=== PATIENT | male | born 1970 | race Caucasian/White ===

== ENCOUNTER 2017-03-16 21:26 | Inpatient (IN) | payer MEDICAID ==
[~2017-03-16] VITALS: Ht 165.1 cm; Wt 62.5 kg
[~2017-03-16 21:26] MED LIST: CHLO25CA9 PO; CYCL-319 PO; NAPR-260 PO; OMEP20CA9 PO
--- NOTE | 2017-03-16 22:25 | RADRPT ---
PROCEDURE: CT cervical spine without contrast. CLINICAL INDICATION: Injury. Post traumatic neck pain TECHNIQUE: CT of the cervical spine without contrast was performed. Axial images were obtained th rough the cervical spine and reformatted at 1.25 mm slice thickness. Coronal and sagittal images wer e reformatted. Exam CTDIvol = 22.23 mGy and DLP = 502.78 mGy-cm. COMPARISON: None available. FINDINGS: Vertebral bodies: Stature at every level is preserved. The lordosis is straightened. Trace retrolis thesis of C4 relative to C5 and C5 L2-C6 is noted on the sagittal reformatted images There is normal mineralization and trabeculation. The C1 ring is intact and the predental space is normal. Central canal and cervical spinal cord: No abnormal density within the spinal cord is evident and no intraspinal masses are delineated. C2-3: The disk is within normal limits. The facet joints are normal. The uncovertebral joints and f oramina are unremarkable. No posterior element fracture or paraspinal soft tissue abnormality is dem onstrated. C3-4: The disk is within normal limits. The facet joints are normal. The uncovertebral joints and foramina are unremarkable. No posterior element fracture or paraspinal soft tissue abnormality is de monstrated. C4-5: Trace loss of disk stature and a broad-based 4 mm disk bulge without focal protrusion or sign ificant central stenosis. The facet joints are normal. Uncovertebral hypertrophy with vacuum phenom enon is present contribute to moderate bilateral foraminal stenosis. No posterior element fracture or paraspinal soft tissue abnormality is demonstrated. C5-6: Mild degenerative disk and with a broad-based posterior disk bulge asymmetric to the right wi thout significant central stenosis. The facet joints are normal. Vacuum phenomenon of the degenerat ed uncovertebral joints is present with mild bilateral foraminal stenosis. No posterior element fra cture or paraspinal soft tissue abnormality is demonstrated. C6-7: The disk is within normal limits. The facet joints are normal. The uncovertebral joints and foramina are unremarkable. C7-T1: The disk is within normal limits. The facet joints are normal. The uncovertebral joints and foramina are unremarkable. Non spine related findings: No abnormalities of significance are seen. RPTAT:HJJR IMPRESSION: 1. No evidence of cervical spine fracture. 2. Straightening of the lordosis may be from positioning but cannot exclude muscle spasm. 3. Minimal degenerative disk disease at C4-5 and C5-6 without significant central stenosis. 4. Uncovertebral hypertrophy with vacuum phenomenon at C4-5 and C5-6 contributing to foraminal sten osis greater at C4-5. Physician Randy Date Time Electronically viewed and signed by Colby Patel Physician on 03/16/2017 22:25 /
--- NOTE | 2017-03-16 22:27 | RADRPT ---
PROCEDURE: CT facial bones CLINICAL INDICATION: Trauma TECHNIQUE: A CT of the facial bones was performed utilizing high-resolution axial images. Sagitta l, coronal, and multiplanar reformatted images were made. Additionally, 3-D reformatted images were made. The CTDIvol is 29.53 mGy and the DLP is 561.93 mGy-cm. One or more the following dose reduction techniques were utilized: Automated exposure control, adjus tment of the mA/ or kV according to patient's size, or use of iterative reconstruction technique. COMPARISON: None. FINDINGS: There is a comminuted fracture of the anterolateral wall of the right maxillary sinus including the right inferior rim with blood in the sinus. There is right orbital preseptal soft tissue swelling an d soft tissue swelling/hematoma overlying the right zygoma, maxilla and mandible with foci of soft t issue air likely arising from the right maxillary sinus. Mucosal thickening in bilateral frontal, et hmoid and left maxillary sinuses. Nasal septum is convex to the right. IMPRESSION: Comminuted fracture of the anterolateral wall of right maxillary sinus including the right inferior orbital rim. Right orbital preseptal soft tissue swelling and soft tissue swelling/hematoma overlyi ng right zygoma, maxilla and mandible. Please see above. RPTAT: HJES .Stephane Johnson MD, MD Date Time Electronically viewed and signed by .Stephane Johnson MD, on 03/16/2017 22:27 .S/
--- NOTE | 2017-03-16 22:32 | RADRPT ---
PROCEDURE: CT Brain without contrast. CLINICAL INDICATION: Trauma, headache TECHNIQUE: A CT of the brain was performed utilizing axial sections from the skull base through th e vertex without contrast. Multiplanar re-formations were generated. Images were reviewed on a high- resolution PACS workstation. CTDIvol: 44.84 mGy. DLP: 720.23 mGy-cm. One or more of the following dose reduction techniques were used: - Automated exposure control. - Adjustment of the mA and/or kV according to patient size. - Use of iterative reconstruction technique. COMPARISON: Facial CT performed concurrently. FINDINGS: There is mild generalized volume loss. No hydrocephalus is seen. A 3 mm thick extra-axial hyperdens ity is noted along the right temporal lobe, also visualized on the concurrent facial CT, consistent with a subdural hematoma. There is no mass effect. No CT evidence of acute infarction is identified . There is patchy low attenuation in the supratentorial white matter, a nonspecific finding which m ost likely represents the sequela of mild chronic microvascular ischemic disease. There is opacification of the visualized right maxillary sinus, consistent with blood. The visualize d mastoid air cells are clear. The ossesous structures are unremarkable. Soft tissue swelling is not ed over the right side of the face. IMPRESSION: 1. 3 mm thick subdural hematoma along the right temporal lobe. There is no associated mass effect. 2. Mild generalized volume loss. 3. Mild chronic microvascular ischemic changes. 4. Blood filled right maxillary sinus. Critical Results were called to Dr. Woodward at 10:25 p.m. on 03/16/2017. RPTAT: HTAR .Rizwan Tripp MD, Date Time Electronically viewed and signed by .Rizwan Tripp MD, MD on 03/16/2017 22:31 .R/
[2017-03-16 23:12] LABS: ADD SCAN DIFF NO
[2017-03-16 23:14] LABS: ABNORMAL IP MESSAGE 1; HEMATOCRIT 41.8 % (42.0-52.0); HEMOGLOBIN 14.3 g/dl (14.0-18.0); MEAN CORPUSCULAR HEMOGLOBIN 30.5 pg (29.0-33.0); MEAN CORPUSCULAR HGB CONC 34.2 g/dl (32.0-37.0); MEAN CORPUSCULAR VOLUME 89.1 fl (82.0-101.0); MEAN PLATELET VOLUME 9.1 fl (7.4-10.4); PLATELET COUNT 56 10^3/UL (140-415); RED BLOOD COUNT 4.69 10^6/ul (4.70-6.10); RED CELL DISTRIBUTION WIDTH 15.5 % (11.5-14.5); WHITE BLOOD COUNT 6.2 10^3/ul (4.8-10.8)
[2017-03-16 23:26] LABS: INR 0.94; PROTIME 12.6 Sec (12.2-14.2)
[2017-03-16 23:27] LABS: PARTIAL THROMBOPLASTIN TIME 26.9 Sec (25.0-35.0)
[2017-03-16 23:28] LABS: ANION GAP 20 (8-16); BLOOD UREA NITROGEN 5 mg/dl (7-20); CALCIUM 8.3 mg/dl (8.4-10.2); CARBON DIOXIDE 27 mmol/L (21-31); CHLORIDE 104 mmol/L (97-110); CREATININE 0.48 mg/dl (0.61-1.24); GLUCOSE 111 mg/dl (70-220); POTASSIUM 3.8 mmol/L (3.5-5.1); SODIUM 147 mmol/L (135-144)
[2017-03-16 23:40] LABS: TROPONIN-I < 0.012 ng/ml (0.00-0.12)
[2017-03-16 23:49] LABS: BASOPHIL # 0.1 10^3/ul (0.0-0.1); EOSINOPHILS # 0.6 10^3/ul (0.0-0.5); LYMPHOCYTES # 1.3 10^3/ul (0.8-2.9); MONOCYTE # 0.6 10^3/ul (0.3-0.9); NEUTROPHIL # 3.6 10^3/ul (1.6-7.5); PLATELET ESTIMATE PLT APPEAR DECREASED; PLATELETS CLUMPS FEW
[2017-03-17] VITALS (20 sets, daily range): BP systolic 105–159; BP diastolic 58–110; PULSE 73–103; RESP 11–25; TEMP 97.8; Ht 165.1 cm; Wt 62.5 kg
--- NOTE | 2017-03-17 00:14 | RADRPT ---
PROCEDURE: XR Chest. CLINICAL INDICATION: Chest pain TECHNIQUE: Single AP portable chest COMPARISON: None. FINDINGS: The cardiomediastinal silhouette is within normal limits of size .. Atherosclerotic calcification of the aorta. The lungs are clear without pleural effusion or focal consolidation. No pneumothorax. The osseous structures and soft tissues are unremarkable. IMPRESSION: 1. No evidence for active cardiopulmonary disease. RPTAT:AAJJ Shan Her Physician Date Time Electronically viewed and signed by Shan Her Physician on 03/17/2017 00:14 EDNA/
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
[2017-03-17] MEDS ORDERED: NACL 0.9% 3 ML SYG IV SCH (03:00)
[2017-03-17] MEDS ORDERED: METOCLOPRAMIDE 10 MG INJ IV PRN (03:00)
[2017-03-17] MEDS: SOD CHLORIDE 0.9% 1,000 ML IV SCH ×3 (03:13→18:14)
--- NOTE | 2017-03-17 06:24 | RADRPT ---
PROCEDURE: CT brain without contrast. CLINICAL INDICATION: Intracranial hemorrhage, follow-up. TECHNIQUE: CT scan of the brain was performed on a multi-detector high-resolution CT scanner. Co ntiguous axial images were obtained from the skull base to the vertex without intravenous contrast. Coronal and sagittal reformatted images were also obtained. Images were reviewed on the PACS works tation. One or more of the following dose reduction techniques were used: - Automated exposure control. - Adjustment of the mA and/or kV according to patient size. - Use of iterative reconstruction technique. Exam CTD/vol = 44.63 mGy. Total exam DLP = 810.25 mGy-cm. COMPARISON: 03/16/2017. FINDINGS: Again demonstrated is mild subdural hemorrhage along the right temporal lobe measuring up to 3 mm in thickness which is unchanged from the prior study. There is mild subarachnoid hemorrhage along the right quadrigeminal plate cistern and tentorium. The ventricles and cortical sulci are prominent c onsistent with mild cerebral volume loss. There are no areas of abnormal attenuation within the brai n parenchyma. There is no mass effect or midline shift. There is right facial soft tissue swelling and hematoma. Again demonstrated are fractures of the an terior wall of the right maxillary sinus and inferior orbital rim with hemorrhage within the right m axillary sinus. The calvarium is intact. Bilateral mastoid air cells are clear. IMPRESSION: Small subdural hemorrhage along the right temporal lobe, unchanged. There is no midline shift. Mild subarachnoid hemorrhage along the right quadrigeminal plate cistern and tentorium, new compared with the prior study. Fractures of the anterior wall of the right maxillary sinus and inferior orbital rim with hemorrhage within the right maxillary sinus. Right facial soft tissue swelling and hematoma. A call report was made to Dr. Berg at 06:24 a.m. .Jose Rodriguez MD, Date Time Electronically viewed and signed by .Jose Rodriguez MD, MD on 03/17/2017 06:24 .T/
[2017-03-17] MEDS: FAMOTIDINE 20 MG TAB PO SCH ×2 (09:41→21:27)
[2017-03-17] MEDS: morphine 2 MG INJ IV PRN ×2 (09:42→13:58)
[2017-03-17] MEDS ORDERED: IOHEXOL 100 ML ONE ×2 (11:39→11:58)
[2017-03-17] MEDS ORDERED: SOD CHLORIDE 0.9% 100 ML ONE ×2 (11:39→11:58)
--- NOTE | 2017-03-17 12:22 | RADRPT ---
PROCEDURE: CT angiogram of the brain with contrast. CLINICAL INDICATION: rule out ruptured aneurysm TECHNIQUE: Thin section axial, coronal and sagittal images were performed through the brain follow ing injection of 100 cc of Isovue 370. One or more of the following dose reduction techniques were used: - Automated exposure control. - Adjustment of the mA and/or kV according to patient size. Use of iterative reconstruction technique. Radiation dose: CTDI: 44.6 and DLP: 810.3 COMPARISON: CT scan of the brain 03/17/2017. FINDINGS: The fourth ventricle, third and lateral ventricles are normal in size configuration. The brain pare nchyma is normal. No intracranial mass or hemorrhage is identified. The visible portions of the gl obes and extraocular muscles are normal. There is a scalp hematoma adjacent to the right frontal kulwant ne and around the right orbit. There is hemorrhage in the right maxillary sinus with a normally less fracture to the ventral wall of the right maxillary sinus. There is a hairline fracture of the infe rior right orbital rim. The right left vertebral arteries are not tortuous but normal. The basilar artery is normal with no evidence of a basilar tip aneurysm. The cavernous and super cavernous portions of the internal carotid arteries are normal. The posterior inferior cerebellar arteries, anterior inferior cerebellar arteries and superior cereb ellar arteries are normal. The posterior cerebral arteries are normal. The left posterior communic ating artery is normal. The right posterior communicating artery is atretic which is a normal varia nt. The the anterior middle cerebral arteries are normal. No anterior communicating artery aneurysm is identified. There is a prominent vein of the levator adjacent to the right temporal lobe. No subdural hematoma is identified. An arachnoid granulation is noted in the left transverse sinus. The neural sinuses are otherwise un remarkable. IMPRESSION: 1. The area increased attenuation located in the periphery of the right middle cranial fossa identif ied on the CT scan of 03/16/2017 at 10:10 p.m. corresponds to a prominent vein of Cherelle. No subdura l hematoma is identified. No subarachnoid hemorrhage is identified at this time. 2. Negative CT angiogram of the brain. 3. Right periorbital soft tissue contusion with fractures involving the anterior wall of the right maxillary sinus. Hemorrhage inside the right maxillary sinus. 4. Hairline fracture of the right inferior orbital rim. RPTAT:AAJJ Hermilo Lamb Physician Date Time Electronically viewed and signed by Hermilo Lamb, Physician on 03/17/2017 12:22 /
[2017-03-17] MEDS: LORAZEPAM 2 MG INJ IV PRN ×2 (15:44→18:45)
[2017-03-17] MEDS: MULTIVITAMINS 10 ML, THIAMINE 100 MG, FOLIC ACID 1 MG in SOD CHLORIDE 0.9% 1,000 ML IVPB SCH ×2 (16:00→16:45)
[2017-03-18] VITALS (11 sets, daily range): BP systolic 121–136; BP diastolic 76–90; PULSE 71–105; RESP 18–20
[2017-03-18] MEDS: SOD CHLORIDE 0.9% 1,000 ML IV SCH ×3 (02:47→18:31)
[2017-03-18] MEDS: FAMOTIDINE 20 MG TAB PO SCH ×2 (08:45→21:40)
[2017-03-18] MEDS ORDERED: MULTIVITAMINS 10 ML, THIAMINE 100 MG, FOLIC ACID 1 MG in SOD CHLORIDE 0.9% 1,000 ML IVPB SCH (09:00)
[2017-03-18 09:31] LABS: ADD SCAN DIFF NO
[2017-03-18 09:33] LABS: ABNORMAL IP MESSAGE 1; BASOPHILS % 0.5 % (0.0-2.0); EOSINOPHILS # 0.4 10^3/ul (0.0-0.5); EOSINOPHILS % 5.1 % (0.0-7.0); HEMATOCRIT 42.5 % (42.0-52.0); HEMOGLOBIN 14.1 g/dl (14.0-18.0); LYMPHOCYTES # 1.1 10^3/ul (0.8-2.9); LYMPHOCYTES % 13.7 % (15.0-51.0); MEAN CORPUSCULAR HEMOGLOBIN 29.9 pg (29.0-33.0); MEAN CORPUSCULAR HGB CONC 33.2 g/dl (32.0-37.0); MEAN CORPUSCULAR VOLUME 90.2 fl (82.0-101.0); MEAN PLATELET VOLUME 9.9 fl (7.4-10.4); MONOCYTE # 0.8 10^3/ul (0.3-0.9); MONOCYTES % 9.3 % (0.0-11.0); NEUTROPHIL # 5.8 10^3/ul (1.6-7.5); RED BLOOD COUNT 4.71 10^6/ul (4.70-6.10); RED CELL DISTRIBUTION WIDTH 14.7 % (11.5-14.5); WHITE BLOOD COUNT 8.1 10^3/ul (4.8-10.8)
[2017-03-18 09:36] LABS: PLATELET COUNT 62 10^3/UL (140-415)
[2017-03-18 09:46] LABS: CALCIUM 8.9 mg/dl (8.4-10.2); CREATININE 0.5 mg/dl (0.61-1.24)
[2017-03-18] MEDS: morphine 2 MG INJ IV PRN (10:40)
[2017-03-18] MEDS ORDERED: ACETAMINOPHEN 500 MG TAB PO PRN (11:30)
[2017-03-18] MEDS: LORAZEPAM 2 MG INJ IV PRN (17:25)
[2017-03-18] MEDS: MULTIVITAMINS 10 ML, THIAMINE 100 MG, FOLIC ACID 1 MG in SOD CHLORIDE 0.9% 1,000 ML IVPB SCH (17:32)
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
[2017-03-18] MEDS ORDERED: CHLORDIAZEPOXIDE 25 MG CAP PO SCH (21:00)
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
[2017-03-19 00:24] VITALS: BP 153/94; RESP 20
[2017-03-19 00:57] VITALS: BP 124/95; PULSE 106
[2017-03-19] MEDS ORDERED: SOD CHLORIDE 0.9% 500 ML IV ONE (01:00)
[2017-03-19 01:20] VITALS: PULSE 104
[2017-03-19] MEDS: SOD CHLORIDE 0.9% 1,000 ML IV SCH (02:31)
[2017-03-19 04:00] VITALS: BP 138/89; RESP 18
[2017-03-19 04:29] VITALS: PULSE 99
[2017-03-19 08:14] LABS: CHOL/HDL RATIO 1.9 RATIO; MAGNESIUM 1.5 mg/dl (1.7-2.5); PHOSPHORUS 3.5 mg/dl (2.5-4.9)
[2017-03-19 08:19] LABS: ALBUMIN 4.5 g/dl (3.3-4.9); ALBUMIN/GLOBULIN RATIO 1.28; BILIRUBIN,INDIRECT 0.8 mg/dl (0-1.1); BILIRUBIN,TOTAL 0.8 mg/dl (0.2-1.3); CALCIUM 9.7 mg/dl (8.4-10.2); CREATININE 0.55 mg/dl (0.61-1.24); POTASSIUM 3.2 mmol/L (3.5-5.1)
[2017-03-19 08:36] LABS: THYROID STIMULATING HORMONE 2.93 MIU/L (0.465-4.680)
[2017-03-19 09:16] LABS: ADD SCAN DIFF NO
[2017-03-19 09:35] LABS: CREATININE 0.52 mg/dl (0.61-1.24)
[2017-03-19 09:36] LABS: CALCIUM 9.7 mg/dl (8.4-10.2)
[2017-03-19 10:34] LABS: ABNORMAL IP MESSAGE 1; BASOPHILS % 0.5 % (0.0-2.0); EOSINOPHILS # 0.4 10^3/ul (0.0-0.5); HEMATOCRIT 40.5 % (42.0-52.0); LYMPHOCYTES % 12.9 % (15.0-51.0); MEAN CORPUSCULAR HEMOGLOBIN 30.6 pg (29.0-33.0); MEAN CORPUSCULAR HGB CONC 34.6 g/dl (32.0-37.0); MEAN CORPUSCULAR VOLUME 88.6 fl (82.0-101.0); MEAN PLATELET VOLUME 10.4 fl (7.4-10.4); MONOCYTE # 0.9 10^3/ul (0.3-0.9); MONOCYTES % 11.8 % (0.0-11.0); NEUTROPHIL # 5.4 10^3/ul (1.6-7.5); NEUTROPHILS % 69.3 % (39.0-77.0); PLATELET COUNT 82 10^3/UL (140-415); RED BLOOD COUNT 4.57 10^6/ul (4.70-6.10); RED CELL DISTRIBUTION WIDTH 14.7 % (11.5-14.5); WHITE BLOOD COUNT 7.7 10^3/ul (4.8-10.8)
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
== END 2017-03-19 07:12 | disposition left against medical advice (07) | DRG 87 ==
LOC: E/R 21:26 → ICU 03-17 02:41 → TEL 03-17 19:02
PROVIDERS: ADMIT Family Medicine; ATTEND Family Medicine
DX: S06.5X0A Traumatic subdural hemorrhage without loss of consciousness, initial encounter (principal); D69.6 Thrombocytopenia, unspecified; S02.40CA Maxillary fracture, right side, initial encounter for closed fracture; S02.81XA Fracture of other specified skull and facial bones, right side, initial encounter for closed fracture; Y04.0XXA Assault by unarmed brawl or fight, initial encounter; F10.229 Alcohol dependence with intoxication, unspecified; Y93.89 Activity, other specified; Y92.89 Other specified places as the place of occurrence of the external cause; Z59.0 Homelessness
CPT/HCPCS: 36415; 70450; 70486; 70496; 71010; 72125; 80048; 80053; 80061; 82652; 83036; 83735; 84100; 84439; 84443; 84484; 85025; 85610; 85730; 87081; 93005; J2060; J2270; J3411; J7030; J7040; Q9967

== ENCOUNTER 2017-03-23 07:56 | Emergency (ER) | payer MEDICAID ==
[~2017-03-23] VITALS: Ht 165.1 cm; Wt 63.0 kg
[2017-03-23 08:00] VITALS: Ht 165.1 cm; Wt 63.0 kg
[2017-03-23] MEDS ORDERED: HYDR-902 PO (08:27)
[2017-03-23] MEDS ORDERED: AMOX1TAB10 PO (08:27)
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
[2017-07-08] MEDS ORDERED: OMEP20CA16 PO (01:02)
== END 2017-03-23 08:37 | disposition home or self-care (01) ==
LOC: FTE 07:56
DX: S02.40CD Maxillary fracture, right side, subsequent encounter for fracture with routine healing (principal); S00.83XD Contusion of other part of head, subsequent encounter; Y09 Assault by unspecified means
CPT/HCPCS: 99284

== ENCOUNTER 2017-07-01 17:32 | Inpatient (IN) | payer MEDICAID ==
[~2017-07-01] VITALS: Ht 165.1 cm; Wt 61.3 kg
[~2017-07-01 17:32] MED LIST changes: +AMOX1TAB10 PO; -CHLO25CA9 PO; -CYCL-319 PO; +HYDR-902 PO; -NAPR-260 PO; -OMEP20CA9 PO
[2017-07-01] MEDS ORDERED: PANTOPRAZOLE IV 80 MG in SOD CHLORIDE 0.9% 100 ML IVPB STA (18:08)
[2017-07-01] MEDS ORDERED: SOD CHLORIDE 0.9% 1,000 ML IV STA (18:08)
[2017-07-01] MEDS ORDERED: OCTREOTIDE 50 MCG in SOD CHLORIDE 0.9% 25 ML IVPB STA (18:08)
[2017-07-01] MEDS ORDERED: OCTREOTIDE 500 MCG in SOD CHLORIDE 0.9% 49 ML IV STA (18:08)
[2017-07-01] MEDS ORDERED: PANTOPRAZOLE IV 80 MG in SOD CHLORIDE 0.9% 100 ML IV STA (18:08)
[2017-07-01 18:48] LABS: ABNORMAL IP MESSAGE 1; HEMATOCRIT 36.8 % (42.0-52.0); HEMOGLOBIN 12.9 g/dl (14.0-18.0); MEAN CORPUSCULAR HEMOGLOBIN 31.5 pg (29.0-33.0); MEAN CORPUSCULAR HGB CONC 35.1 g/dl (32.0-37.0); MEAN CORPUSCULAR VOLUME 89.8 fl (82.0-101.0); MEAN PLATELET VOLUME 9.3 fl (7.4-10.4); PLATELET COUNT 64 10^3/UL (140-415); POSITIVE DIFF @See below; RED CELL DISTRIBUTION WIDTH 14.2 % (11.5-14.5); WHITE BLOOD COUNT 4.6 10^3/ul (4.8-10.8)
[2017-07-01 19:05] LABS: ALBUMIN 4.4 g/dl (3.3-4.9); ALBUMIN/GLOBULIN RATIO 1.29; BILIRUBIN,INDIRECT 0.1 mg/dl (0-1.1); BILIRUBIN,TOTAL 0.1 mg/dl (0.2-1.3); CALCIUM 8.7 mg/dl (8.4-10.2); CREATININE 0.56 mg/dl (0.61-1.24); POTASSIUM 3.4 mmol/L (3.5-5.1); TOTAL PROTEIN 7.8 g/dl (6.1-8.1)
--- NOTE | 2017-07-01 19:23 | RADRPT ---
PROCEDURE: XR Chest. CLINICAL INDICATION: Possible Upper GI Bleed TECHNIQUE: Single frontal view of the chest was obtained. COMPARISON: 03/16/2017 FINDINGS: The cardiomediastinal silhouette is normal size. Pulmonary vasculature is within normal limits. Th e lungs are clear. No signs of pleural fluid or pneumothorax are seen. The osseous structures and soft tissues are unre markable. IMPRESSION: No evidence for active cardiopulmonary disease. RPTAT: HBST .Stanford Ramirez MD, MD Date Time Electronically viewed and signed by .Stanford Ramirez MD, MD on 07/01/2017 19:22 .T/
[2017-07-01 19:27] LABS: INR 0.89; PT RATIO 0.9
[2017-07-01 19:28] LABS: PARTIAL THROMBOPLASTIN TIME 26.4 Sec (25.0-35.0)
[2017-07-01 19:48] LABS: BASOPHILS % (M) 3 % (0-2); EOSINOPHILS % (M) 20 % (0-7); GIANT THROMBO% (M) 3 % (0-0); MONOCYTES % (M) 8 % (0-11); PLATELET ESTIMATE DECREASED
--- NOTE | 2017-07-01 22:58 | ERA ---
ER Documentation Chief Complaint Date/Time DATE: 07/01/17 TIME: 22:52 Chief Complaint ETOH VOMITING BLOOD X multi HPI This is a 46-year-old male who is alcoholic and has been drinking heavily over the past week. He said last night he vomited about 5-7 times bright red blood. He said the entire vomited vomitus was blood. He says this morning he woke up and threw up 3 or 4 more times that was pure blood and did the same again later this afternoon. Is not having any abdominal pain back pain dizziness syncope. He has not had any melena diarrhea thus far. He denies any prior history of peptic ulcer disease. ROS All systems reviewed and are negative except as per history of present illness. Medications Home Meds Discontinued Scripts Hydrocodone/Acetaminophen ([place] 10-325 Tablet) 1 Each Tablet, 1 TAB PO Q6H Y for PAIN, #20 TAB Prov:ANETA GORDILLO MD 03/23/17 Amoxicillin/Potassium Clav (Amox-Clav 875-125 mg Tablet) 875-125 mg Tab, 1 TAB PO BID for 7 Days, #14 TAB Prov:ANETA GORDILLO MD 03/23/17 Allergies Allergies: Coded Allergies: No Known Allergy (Verified , 07/01/17) PMhx/Soc History of Surgery: No Anesthesia Reaction: No Hx Neurological Disorder: No Hx Respiratory Disorders: No Hx Cardiac Disorders: No Hx Psychiatric Problems: No Hx Miscellaneous Medical Probl: Yes (GASTRITIS, ETOH ABUSE, SUB DURAL HEMATOMA) Hx Alcohol Use: Yes (DAILY: 1/2 P[place]) Hx Substance Use: No Hx Tobacco Use: No Smoking Status: Never smoker FmHx Family History: No coronary disease Physical Exam Vitals Vital Signs Date Time Temp Pulse Resp B/P Pulse Ox O2 Delivery O2 Flow Rate FiO2 07/01/17 21:00 98.0 78 20 135/84 96 Room Air 07/01/17 17:40 97.8 121 20 120/82 99 Physical Exam Const: Well-developed, well-nourished Head: Atraumatic, normocephalic Eyes: Normal Conjunctiva, PERRLA, EOMI, normal sclera, no nystagmus ENT: Normal External Ears, mouth has a dried blood around the lips with a bloody coated tongue, moist mucus membranes. Neck: Full range of motion. No meningismus, no lymphadenopathy. Resp: Clear to auscultation bilaterally, no wheezing, rhonchi, rales Cardio: Regular rate and rhythm, no murmurs, S1 S2 present Abd: Soft, non tender x 4, non distended. Normal bowel sounds, no guarding or rebound, no pulsitile abdominal masses or bruits Skin: No petechiae or rashes, no ecchymosis , no maculopapular rash Back: No midline or flank tenderness Ext: No cyanosis, or edema, FROM x 4, normal inspection, neurovascularly intact x 4 Neur: Awake and alert, STR 5/5 x 4, sensation intact x 4, no focal findings, cerebellum intact Psych: Normal Mood and Affect Result Diagram: 07/01/17182907/01/171829 Results 24 hrs Laboratory Tests Test 07/01/17 18:30 White Blood Count 4.610^3/ul Red Blood Count 4.1010^6/ul Hemoglobin 12.9g/dl Hematocrit 36.8% Mean Corpuscular Volume 89.8fl Mean Corpuscular Hemoglobin 31.5pg Mean Corpuscular Hemoglobin Concent 35.1g/dl Red Cell Distribution Width 14.2% Platelet Count 6410^3/UL Mean Platelet Volume 9.3fl Neutrophils % % Segmented Neutrophils % (Manual) 43% Lymphocytes % % Lymphocytes % (Manual) 26% Monocytes % % Monocytes % (Manual) 8% Eosinophils % % Eosinophils % (Manual) 20% Basophils % % Basophils % (Manual) 3% Nucleated Red Blood Cells % 0.0/100WBC Neutrophils # 10^3/ul Absolute Lymphocytes (Manual) 1.110^3/ul Lymphocytes # 10^3/ul Monocytes # 10^3/ul Absolute Monocytes (Manual) 0.310^3/ul Eosinophils # 10^3/ul Basophils # 10^3/ul Basophils # (Manual) 0.110^3/ul Nucleated Red Blood Cells # 10^3/ul Smudge Cells % 5% Thrombocytosis 3% Platelet Estimate DECREASED Prothrombin Time 12.0Sec Prothrombin Time Ratio 0.9 INR International Normalized Ratio 0.89 Activated Partial Thromboplast Time 26.4Sec Sodium Level 149mmol/L Potassium Level 3.4mmol/L Chloride Level 101mmol/L Carbon Dioxide Level 26mmol/L Anion Gap 25 Blood Urea Nitrogen 9mg/dl Creatinine 0.56mg/dl Glucose Level 133mg/dl Calcium Level 8.7mg/dl Total Bilirubin 0.1mg/dl Direct Bilirubin 0.00mg/dl Indirect Bilirubin 0.1mg/dl Aspartate Amino Transf (AST/SGOT) 111IU/L Alanine Aminotransferase (ALT/SGPT) 57IU/L Alkaline Phosphatase 68IU/L Total Protein 7.8g/dl Albumin 4.4g/dl Globulin 3.40g/dl Albumin/Globulin Ratio 1.29 Lipase 419U/L Ethyl Alcohol Level 265.0mg/dl Current Medications Medications (Trade) Dose Ordered Sig/Vicente Route PRN Reason Start Time Stop Time Status Last Admin Dose Admin Sodium Chloride 1,000 ml @ 1,000 mls/hr Q1H STAT IV 07/01/17 18:08 07/01/17 19:07 DC 07/01/17 18:13 Pantoprazole 80 mg/Sodium Chloride 100 ml @ 400 mls/hr ONCE STAT IVPB 07/01/17 18:08 07/01/17 18:22 DC 07/01/17 19:16 Pantoprazole 80 mg/Sodium Chloride 100 ml @ 10 mls/hr ONCE STAT IV 07/01/17 18:08 07/02/17 04:07 07/01/17 19:26 Octreotide Acetate 50 mcg/ Sodium Chloride 26 ml @ 100 mls/hr Q16M STAT IVPB 07/01/17 18:08 07/01/17 18:23 DC 07/01/17 19:16 Octreotide Acetate/Sodium Chloride (Sandostatin/NS) 50 ml @ 5 mls/hr ONCE STAT IV 07/01/17 18:08 07/02/17 04:07 07/01/17 19:26 Procedures/MDM The patient is not anemic and does not require blood transfusion at this time. He is vomited maroon colored blood on multiple occasions last night and today. His cause is likely a bleeding ulcer/gastritis/esophageal variceal bleed. Patient was put on Protonix IV bolus and drip as well as octreotide bolus and drip I have paged GI doctor suture for consultation. Will admit to panel Departure Diagnosis: Primary Impression: Upper GI bleed Additional Impression: Alcoholic intoxication Qualified Code: F10.120 - Alcoholic intoxication, uncomplicated Condition: Stable TOYIN TORREZ DO Jul 01, 2017 22:58
[2017-07-01] MEDS ORDERED: SOD CHLORIDE 0.9% 1,000 ML IV SCH (22:59)
[2017-07-01] MEDS ORDERED: ONDANSETRON 4 MG INJ IV PRN (23:00)
[2017-07-01] MEDS ORDERED: ACETAMINOPHEN 325 MG TAB PO PRN (23:00)
[2017-07-01] MEDS ORDERED: HYDROmorphONE 1 MG/ML SYG IV STA (23:16)
[2017-07-01] MEDS ORDERED: ONDANSETRON 4 MG INJ IV STA (23:16)
[2017-07-02] VITALS (14 sets, daily range): BP systolic 125–150; BP diastolic 70–92; PULSE 64–90; RESP 17–20; TEMP 98; Ht 165.1 cm; Wt 61.3 kg
[2017-07-02] MEDS ORDERED: ONDANSETRON 4 MG INJ IV PRN (01:30)
[2017-07-02] MEDS: SOD CHLORIDE 0.9% 1,000 ML IV SCH ×3 (01:55→17:27)
[2017-07-02] MEDS: LORAZEPAM 2 MG INJ IV PRN ×2 (04:54→11:27)
[2017-07-02] MEDS: PANTOPRAZOLE IV 80 MG in SOD CHLORIDE 0.9% 100 ML IV SCH ×3 (04:55→23:58)
[2017-07-02] MEDS: CHLORDIAZEPOXIDE 25 MG CAP PO SCH ×3 (06:00→21:02)
[2017-07-02 07:22] LABS: ABNORMAL IP MESSAGE 1; BASOPHIL # 0.1 10^3/ul (0.0-0.1); BASOPHILS % 1.3 % (0.0-2.0); EOSINOPHILS # 0.4 10^3/ul (0.0-0.5); EOSINOPHILS % 7.1 % (0.0-7.0); HEMATOCRIT 37.7 % (42.0-52.0); HEMOGLOBIN 12.6 g/dl (14.0-18.0); LYMPHOCYTES # 0.5 10^3/ul (0.8-2.9); LYMPHOCYTES % 9.5 % (15.0-51.0); MEAN CORPUSCULAR HEMOGLOBIN 30.1 pg (29.0-33.0); MEAN CORPUSCULAR HGB CONC 33.4 g/dl (32.0-37.0); MEAN CORPUSCULAR VOLUME 90.2 fl (82.0-101.0); MEAN PLATELET VOLUME 9.5 fl (7.4-10.4); MONOCYTE # 0.5 10^3/ul (0.3-0.9); MONOCYTES % 9.1 % (0.0-11.0); NEUTROPHILS % 72.8 % (39.0-77.0); POSITIVE DIFF @See below; RED BLOOD COUNT 4.18 10^6/ul (4.70-6.10); RED CELL DISTRIBUTION WIDTH 13.9 % (11.5-14.5); WHITE BLOOD COUNT 5.5 10^3/ul (4.8-10.8)
[2017-07-02 07:26] LABS: PLATELET COUNT 50 10^3/UL (140-415)
--- NOTE | 2017-07-02 07:26 | HP ---
Date/Time of Note Date/Time of Note DATE: 07/02/17 TIME: 07:14 Assessment/Plan Lines/Catheters IV Catheter Type (from [facility]): Peripheral IV Urinary Cath still in place: No Assessment/Plan Assessment/Plan 1. Upper GI Bleed: - Protonix gtt - awaiting GI eval - monitor h/h closely and transfuse as needed 2. Alcohol Abuse - started Banana bag alternating with IVF, Ativan as needed - abstinence from alcohol will be enforced though out hospitalization 3. Hypernatremia, mild: monitor for now 4. Hypokalemia - replete as needed 5. Elevated transaminase: 2/2 alcoholic liver disease - closely monitor HPI/ROS Admit Date/Time Admit Date/Time Jul 01, 2017 at 23:00 Hx of Present Illness This is a 46 yo male with hx of alcohol abuse who presented to ER c/o vomiting blood and abd pain. He has been drinking heavily, last drink was the night before. He had multiple episodes of hematemesis described as bright red blood emesis. When he presented to ER, his vitals were stable and remained stable. Hgb was 12.8. He was started on Protonix and Octreotide gtt. . PMH/Family/Social Past Surgical History Past Surgical Hx: no surgical history Social History Smoking Status: Unknown if ever smoked Exam/Review of Systems Vital Signs Vitals Vital Signs Date Time Temp Pulse Resp B/P Pulse Ox O2 Delivery O2 Flow Rate FiO2 07/02/17 04:01 97.3 69 20 140/85 95 07/02/17 00:46 Room Air Intake and Output 07/01/17 07/01/17 07/02/17 15:00 23:00 07:00 Intake Total 1150 ml 705 ml Output Total 200 ml Balance 1150 ml 505 ml Labs Result Diagram: 07/01/17 1830 07/01/17 1830 Medications Medications Current Medications Multivitamins 10 ml/Thiamine HCl 100 mg/Folic Acid 1 mg/Sodium Chloride 1,011.2 ml @ 125 mls/ hr DAILY@09 IVPB ; Start 07/02/17 at 09:00; Stop 07/06/17 at 09:00 Sodium Chloride 1,000 ml @ 125 mls/hr Q8H IV Last administered on 07/02/17t 01: 55; Admin Dose 125 MLS/HR; Start 07/02/17 at 01:30 Pantoprazole/ Sodium Chloride (Protonix Iv/NS) 100 ml @ 10 mls/hr Q10H IV Last administered on 07/02/17 04:55; Admin Dose 10 MLS/HR; Start 07/02/17 at 04: 08 Lorazepam (Ativan) 2 mg Q1H PRN IV FOR WITHDRAWAL Last administered on 04:54; Admin Dose 2 MG; Start 07/02/17 at 01:30 Chlordiazepoxide (Librium) 75 mg Q8 PO ; Start 07/02/17 at 06:00 Ondansetron HCl (Zofran Inj) 4 mg Q6H PRN IV NAUSEA AND/OR VOMITING Last administered on 07/02/17 04:54; Admin Dose 4 MG; Start 07/02/17 at 01:30 NICHELLE CARPENTER MD Jul 02, 2017 07:24
[2017-07-02 07:51] LABS: ALBUMIN 4.4 g/dl (3.3-4.9); ALBUMIN/GLOBULIN RATIO 1.57; BILIRUBIN,INDIRECT 0.6 mg/dl (0-1.1); BILIRUBIN,TOTAL 0.6 mg/dl (0.2-1.3); CALCIUM 8.2 mg/dl (8.4-10.2); CREATININE 0.55 mg/dl (0.61-1.24); MAGNESIUM 1.3 mg/dl (1.7-2.5); PHOSPHORUS 3.3 mg/dl (2.5-4.9); TOTAL PROTEIN 7.2 g/dl (6.1-8.1)
[2017-07-02] MEDS: MULTIVITAMINS 10 ML, THIAMINE 100 MG, FOLIC ACID 1 MG in SOD CHLORIDE 0.9% 1,000 ML IVPB SCH (10:41)
--- NOTE | 2017-07-02 15:36 | CONS ---
Date/Time of Note Date/Time of Note DATE: 07/02/17 TIME: 15:00 Assessment/Plan Assessment/Plan Additional Assessment/Plan Assessment * Hematemesis R/O esophageal varices bleeding vs Gely Isabelle tear vs bleeding peptic ulcer disease * chronic alcoholism * Chest pain Plan * EGD tomorrow risk and benefit explained to patient * protonix drip * octreotide drip * Monitor hemoglobin and hematocrit daily * further orders will depend on clinical course Consultation Date/Type/Reason Admit Date/Time Jul 01, 2017 at 23:00 Date of Consultation: Jul 02, 2017 Type of Consultation: Gastroenterology Reason for Consultation hematemesis Referring Provider: EDWAR CALLOWAY Hx of Present Illness 46 year old male with past medical of chronic alcoholism consuming a 1/2 pint of vodka almost everyday for the past 10 years,presented in the emergency room because of hematemesis.present condition started 2 days ago ,heavy bout of alcoholic binge followed with nausea ,vague abdominal pain with hematemesis x3 about 1/2 cup per bout and tremors prompted consult.HE denies any episode of hematochezia,shortness of breath Workup revealed hemoglobin 12.9 PT 12 ,INR 0.89 Chest x ray revealed No evidence for active cardiopulmonary disease.He was started on octreotide drip and protonix drip.He was supposed to have EGD this morning but develop chest pain hence was deferred.He will be scheduled for EGD tomorrow pending clearance from primary or cardiology.Presently ,he sill complains of chest pain bearable but with tremors Constitutional: improved, no complaints Eyes: no complaints ENT: no complaints Respiratory: no complaints Cardiovascular: no complaints Gastrointestinal: blood, pain Genitourinary: no complaints Musculoskeletal: no complaints Skin: no complaints Neurologic: no complaints Endocrine: no complaints Lymphatic: no complaints Psychological: nl mood/affect, no complaints Immunologic: no complaints Past Surgical History Past Surgical Hx: no surgical history Social History Alcohol Use: heavy (1/2 pint vodka 20 years) Smoking Status: Unknown if ever smoked Drug Use: none Exam/Review of Systems Vital Signs Vitals Vital Signs Date Time Temp Pulse Resp B/P Pulse Ox O2 Delivery O2 Flow Rate FiO2 07/02/17 14:41 80 07/02/17 11:43 98.9 18 142/92 97 07/02/17 00:46 Room Air Intake and Output 07/01/17 07/01/17 07/02/17 15:00 23:00 07:00 Intake Total 1150 ml 705 ml Output Total 200 ml Balance 1150 ml 505 ml Exam Constitutional: alert, oriented, well developed Psych: nl mood/affect, no complaints Head: atraumatic, normocephalic Eyes: EOMI, PERRL, nl conjunctiva, nl lids, nl sclera ENMT: nl nasal mucosa & septum Neck: non-tender, supple Respiratory: clear to auscultation, normal air movement Cardiovascular: nl pulses, regular rate and rhythm Gastrointestinal: nl liver, spleen, non-tender, soft Musculoskeletal: nl extremities to inspection, nl gait and stance Extremities: normal pulses Neurological: [employer] II-XII intact, nl mental status, nl speech, nl strength Skin: nl turgor, No rash or lesions Lymph: nl lymph nodes Results Result Diagram: 07/02/17 0649 07/02/17 0649 Results 24 hrs Laboratory Tests Test 07/01/17 18:30 07/02/17 06:49 White Blood Count 4.6 #L 5.5 Red Blood Count 4.10 L 4.18 L Hemoglobin 12.9 L 12.6 L Hematocrit 36.8 L 37.7 L Mean Corpuscular Volume 89.8 90.2 Mean Corpuscular Hemoglobin 31.5 30.1 Mean Corpuscular Hemoglobin Concent 35.1 33.4 Red Cell Distribution Width 14.2 13.9 Platelet Count 64 #L 50 #L Mean Platelet Volume 9.3 9.5 Neutrophils % 72.8 Segmented Neutrophils % (Manual) 43 Lymphocytes % 9.5 L Lymphocytes % (Manual) 26 Monocytes % 9.1 Monocytes % (Manual) 8 Eosinophils % 7.1 H Eosinophils % (Manual) 20 H Basophils % 1.3 Basophils % (Manual) 3 H Nucleated Red Blood Cells % 0.0 0.0 Neutrophils # 4.0 Absolute Lymphocytes (Manual) 1.1 Lymphocytes # 0.5 L Monocytes # 0.5 Absolute Monocytes (Manual) 0.3 Eosinophils # 0.4 Basophils # 0.1 Basophils # (Manual) 0.1 H Nucleated Red Blood Cells # 0.0 Smudge Cells % 5 H Thrombocytosis 3 H Platelet Estimate DECREASED Prothrombin Time 12.0 L Prothrombin Time Ratio 0.9 INR International Normalized Ratio 0.89 Activated Partial Thromboplast Time 26.4 Sodium Level 149 H 144 Potassium Level 3.4 L 4.0 Chloride Level 101 100 Carbon Dioxide Level 26 24 Anion Gap 25 H 24 H Blood Urea Nitrogen 9 4 L Creatinine 0.56 L 0.55 L Glucose Level 133 80 # Calcium Level 8.7 8.2 L Total Bilirubin 0.1 L 0.6 Direct Bilirubin 0.00 0.00 Indirect Bilirubin 0.1 0.6 Aspartate Amino Transf (AST/SGOT) 111 H 109 H Alanine Aminotransferase (ALT/SGPT) 57 57 Alkaline Phosphatase 68 73 Total Protein 7.8 7.2 Albumin 4.4 4.4 Globulin 3.40 H 2.80 Albumin/Globulin Ratio 1.29 1.57 Lipase 419 H Ethyl Alcohol Level 265.0 Phosphorus Level 3.3 Magnesium Level 1.3 L Medications Medications Current Medications Multivitamins 10 ml/Thiamine HCl 100 mg/Folic Acid 1 mg/Sodium Chloride 1,011.2 ml @ 125 mls/ hr DAILY@09 IVPB Last administered on 07/02/17 10:41; Admin Dose 125 MLS/HR; Start 07/02/17 at 09:00; Stop 07/06/17 at 09:00 Sodium Chloride 1,000 ml @ 125 mls/hr Q8H IV Last administered on 07/02/17 10: 42; Admin Dose 125 MLS/HR; Start 07/02/17 at 01:30 Pantoprazole/ Sodium Chloride (Protonix Iv/NS) 100 ml @ 10 mls/hr Q10H IV Last administered on 07/02/17 14:30; Admin Dose 10 MLS/HR; Start 07/02/17 at 04: 08 Lorazepam (Ativan) 2 mg Q1H PRN IV FOR WITHDRAWAL Last administered on 11:27; Admin Dose 2 MG; Start 07/02/17 at 01:30 Chlordiazepoxide (Librium) 75 mg Q8 PO Last administered on 07/02/17 14:30; Admin Dose 75 MG; Start 07/02/17 at 06:00 Ondansetron HCl (Zofran Inj) 4 mg Q6H PRN IV NAUSEA AND/OR VOMITING Last administered on 07/02/17 04:54; Admin Dose 4 MG; Start 07/02/17 at 01:30 MATT MUÑIZ MD Jul 02, 2017 15:36
[2017-07-02] MEDS ORDERED: MAGNESIUM SULFATE 4 GM/100 ML 100 ML IVPB ONE (16:30)
--- NOTE | 2017-07-02 21:11 | CONS ---
Date/Time of Note Date/Time of Note DATE: 07/02/17 TIME: 21:06 Assessment/Plan Assessment/Plan Chief Complaint/Hosp Course Assessment: Atypical chest pain - appears to have components of musculoskeletal and gastrointestinal pain, initial troponin negative Hematemesis - planned for upper endoscopy Alcohol abuse - per primary team Recommendations: -obtain EKG and additional troponin -if negative, no additional cardiac work up at this time and stable to proceed with upper endoscopy from cardiac standpoint Problems: Consultation Date/Type/Reason Admit Date/Time Jul 01, 2017 at 23:00 Type of Consultation: Cardiology Reason for Consultation chest pain Hx of Present Illness The patient is a 46 year-old male with history of alcohol abuse who presents with hematemesis and abdominal pain. He was planned for upper endoscopy, but this was delayed due to the patient complaining of chest pain. He describes a burning sensation in his epigastric area that is similar to the sensation he gets after eating spicy food. He also describes a separate left-sided pounding sensation, which was exacerbated by pressing on his chest. His symptoms lasted for approximately one hour and have now resolved. He denies any recent exertional symptoms. His initial troponin is negative. 14 point review of systems negative other than per HPI. Past Medical History Medical History: no pertinent history Past Surgical History Past Surgical Hx: no surgical history Social History Alcohol Use: heavy (1/2 pint vodka 20 years) Smoking Status: Never smoker Drug Use: none Exam/Review of Systems Vital Signs Vitals Vital Signs Date Time Temp Pulse Resp B/P Pulse Ox O2 Delivery O2 Flow Rate FiO2 07/02/17 20:13 90 07/02/17 20:00 98.0 19 129/82 98 07/02/17 00:46 Room Air Intake and Output 07/01/17 07/01/17 07/02/17 15:00 23:00 07:00 Intake Total 1150 ml 705 ml Output Total 200 ml Balance 1150 ml 505 ml Exam Constitutional: alert, well developed Psych: nl mood/affect, no complaints Head: atraumatic, normocephalic Eyes: nl conjunctiva, nl lids ENMT: nl external ears & nose, nl nasal mucosa & septum Neck: non-tender, supple, No jvd Respiratory: clear to auscultation, normal air movement Cardiovascular: regular rate and rhythm, No murmurs/extra sounds Gastrointestinal: non-tender, soft Musculoskeletal: nl extremities to inspection Extremities: No clubbing, No cyanosis, No edema Neurological: nl mental status, nl speech Skin: nl turgor Results Result Diagram: 07/02/17 0649 07/02/17 0649 Results 24 hrs Laboratory Tests Test 07/02/17 06:49 07/02/17 15:30 White Blood Count 5.5 Red Blood Count 4.18 L Hemoglobin 12.6 L Hematocrit 37.7 L Mean Corpuscular Volume 90.2 Mean Corpuscular Hemoglobin 30.1 Mean Corpuscular Hemoglobin Concent 33.4 Red Cell Distribution Width 13.9 Platelet Count 50 #L Mean Platelet Volume 9.5 Neutrophils % 72.8 Lymphocytes % 9.5 L Monocytes % 9.1 Eosinophils % 7.1 H Basophils % 1.3 Nucleated Red Blood Cells % 0.0 Neutrophils # 4.0 Lymphocytes # 0.5 L Monocytes # 0.5 Eosinophils # 0.4 Basophils # 0.1 Nucleated Red Blood Cells # 0.0 Sodium Level 144 Potassium Level 4.0 Chloride Level 100 Carbon Dioxide Level 24 Anion Gap 24 H Blood Urea Nitrogen 4 L Creatinine 0.55 L Glucose Level 80 # Calcium Level 8.2 L Phosphorus Level 3.3 Magnesium Level 1.3 L Total Bilirubin 0.6 Direct Bilirubin 0.00 Indirect Bilirubin 0.6 Aspartate Amino Transf (AST/SGOT) 109 H Alanine Aminotransferase (ALT/SGPT) 57 Alkaline Phosphatase 73 Total Protein 7.2 Albumin 4.4 Globulin 2.80 Albumin/Globulin Ratio 1.57 Troponin I < 0.012 Medications Medications Current Medications Multivitamins 10 ml/Thiamine HCl 100 mg/Folic Acid 1 mg/Sodium Chloride 1,011.2 ml @ 125 mls/ hr DAILY@09 IVPB Last administered on 07/02/17 10:41; Admin Dose 125 MLS/HR; Start 07/02/17 at 09:00; Stop 07/06/17 at 09:00 Sodium Chloride 1,000 ml @ 125 mls/hr Q8H IV Last administered on 07/02/17 17: 27; Admin Dose 125 MLS/HR; Start 07/02/17 at 01:30 Pantoprazole/ Sodium Chloride (Protonix Iv/NS) 100 ml @ 10 mls/hr Q10H IV Last administered on 07/02/17 14:30; Admin Dose 10 MLS/HR; Start 07/02/17 at 04: 08 Lorazepam (Ativan) 2 mg Q1H PRN IV FOR WITHDRAWAL Last administered on 11:27; Admin Dose 2 MG; Start 07/02/17 at 01:30 Chlordiazepoxide (Librium) 75 mg Q8 PO Last administered on 07/02/17 21:02; Admin Dose 75 MG; Start 07/02/17 at 06:00 Ondansetron HCl (Zofran Inj) 4 mg Q6H PRN IV NAUSEA AND/OR VOMITING Last administered on 07/02/17 04:54; Admin Dose 4 MG; Start 07/02/17 at 01:30 DANK RAZO MD Jul 02, 2017 21:11
[2017-07-03] VITALS (7 sets, daily range): BP systolic 130–142; BP diastolic 72–95; PULSE 56–102; RESP 19–20
[2017-07-03] MEDS: SOD CHLORIDE 0.9% 1,000 ML IV SCH (01:11)
[2017-07-03] MEDS: CHLORDIAZEPOXIDE 25 MG CAP PO SCH (05:26)
[2017-07-03 08:38] LABS: ABNORMAL IP MESSAGE 1; BASOPHIL # 0.1 10^3/ul (0.0-0.1); BASOPHILS % 0.8 % (0.0-2.0); EOSINOPHILS # 0.7 10^3/ul (0.0-0.5); EOSINOPHILS % 11.2 % (0.0-7.0); HEMATOCRIT 41.2 % (42.0-52.0); HEMOGLOBIN 13.9 g/dl (14.0-18.0); LYMPHOCYTES % 17.3 % (15.0-51.0); MEAN CORPUSCULAR HEMOGLOBIN 31.1 pg (29.0-33.0); MEAN CORPUSCULAR HGB CONC 33.7 g/dl (32.0-37.0); MEAN CORPUSCULAR VOLUME 92.2 fl (82.0-101.0); MEAN PLATELET VOLUME 10.7 fl (7.4-10.4); MONOCYTE # 0.6 10^3/ul (0.3-0.9); MONOCYTES % 10.5 % (0.0-11.0); NEUTROPHIL # 3.6 10^3/ul (1.6-7.5); PLATELET COUNT 64 10^3/UL (140-415); POSITIVE DIFF @See below; RED BLOOD COUNT 4.47 10^6/ul (4.70-6.10); RED CELL DISTRIBUTION WIDTH 13.6 % (11.5-14.5); WHITE BLOOD COUNT 5.9 10^3/ul (4.8-10.8)
[2017-07-03] MEDS: MULTIVITAMINS 10 ML, THIAMINE 100 MG, FOLIC ACID 1 MG in SOD CHLORIDE 0.9% 1,000 ML IVPB SCH (08:55)
[2017-07-03 09:11] LABS: CALCIUM 8.3 mg/dl (8.4-10.2); CREATININE 0.55 mg/dl (0.61-1.24); MAGNESIUM 2.1 mg/dl (1.7-2.5); POTASSIUM 3.5 mmol/L (3.5-5.1)
--- NOTE | 2017-07-03 15:04 | RADRPT ---
Vent Rate: 65 bpm RR Interval: 0 msec VT Interval: 154 msec QRS Duration: 86 msec QT Interval: 464 msec QTC Interval: 482 msec P-R-T [place]: 42 - 78 - 71 degrees Normal sinus rhythm Prolonged QT Abnormal ECG Electronically Signed By: Getachew Rodriguez [id number]
--- NOTE | 2017-07-03 16:56 | DS ---
Date/Time of Note Date/Time of Note DATE: 07/03/17 TIME: 16:50 Discharge Summary Admission/Discharge Info Admit Date/Time Jul 01, 2017 at 23:00 Discharge Date/Time Jul 03, 2017 at 12:15 Discharge Diagnosis 1. Upper GI Bleed: Patient left AMA -Status post Protonix gtt 2. Alcohol Abuse-cessation advised, left AMA -Banana bag given 3. Hypernatremia-resolved 4. Hypokalemia-resolved - replete as needed 5. Elevated transaminase: 2/2 alcoholic liver disease Hospital Course Patient is is a 46 yo male with hx of alcohol abuse who presented to ER c/o vomiting blood and abd pain. He had been drinking heavily then had multiple episodes of hematemesis described as bright red blood emesis. When he presented to ER, his vitals were stable and remained stable. Hgb was 12.8. He was started on Protonix and Octreotide gtt. Patient was to an have EGD with a complaint of chest pain and so EGD was held off, she was seen by cardiology and ACS was ruled out with negative troponins. Of note patient's chest pain was atypical as it was reproducible with palpation. On the day the patient left AMA patient was to have an EGD with GI but he decided to leave AGAINST MEDICAL ADVICE. . Home Meds Discontinued Scripts Hydrocodone/Acetaminophen ([place] 10-325 Tablet) 1 Each Tablet, 1 TAB PO Q6H Y for PAIN, #20 TAB Prov:ANETA GORDILLO MD 03/23/17 Amoxicillin/Potassium Clav (Amox-Clav 875-125 mg Tablet) 875-125 mg Tab, 1 TAB PO BID for 7 Days, #14 TAB Prov:ANETA GORDILLO MD 03/23/17 Primary Care Provider Care Physician No Primary Time spent on discharge: < 30 minutes Pending Labs Laboratory Tests Test 07/02/17 23:22 07/03/17 08:19 Troponin I < 0.012ng/ml (0.00-0.12) White Blood Count 5.910^3/ul (4.8-10.8) Red Blood Count 4.4710^6/ul (4.70-6.10) Hemoglobin 13.9g/dl (14.0-18.0) Hematocrit 41.2% (42.0-52.0) Mean Corpuscular Volume 92.2fl (82.0-101.0) Mean Corpuscular Hemoglobin 31.1pg (29.0-33.0) Mean Corpuscular Hemoglobin Concent 33.7g/dl (32.0-37.0) Red Cell Distribution Width 13.6% (11.5-14.5) Platelet Count 6410^3/UL (140-415) Mean Platelet Volume 10.7fl (7.4-10.4) Neutrophils % 60.0% (39.0-77.0) Lymphocytes % 17.3% (15.0-51.0) Monocytes % 10.5% (0.0-11.0) Eosinophils % 11.2% (0.0-7.0) Basophils % 0.8% (0.0-2.0) Nucleated Red Blood Cells % 0.0/100WBC (0.0-0.0) Neutrophils # 3.610^3/ul (1.6-7.5) Lymphocytes # 1.010^3/ul (0.8-2.9) Monocytes # 0.610^3/ul (0.3-0.9) Eosinophils # 0.710^3/ul (0.0-0.5) Basophils # 0.110^3/ul (0.0-0.1) Nucleated Red Blood Cells # 0.010^3/ul (0.0-0.0) Sodium Level 142mmol/L (135-144) Potassium Level 3.5mmol/L (3.5-5.1) Chloride Level 99mmol/L (97-110) Carbon Dioxide Level 25mmol/L (21-31) Anion Gap 22 (8-16) Blood Urea Nitrogen 5mg/dl (7-20) Creatinine 0.55mg/dl (0.61-1.24) Glucose Level 83mg/dl (70-220) Calcium Level 8.3mg/dl (8.4-10.2) Magnesium Level 2.1mg/dl (1.7-2.5) EDWAR CALLOWAY Jul 03, 2017 16:55
[2017-07-08] MEDS ORDERED: OMEP20CA16 PO (01:02)
== END 2017-07-03 12:15 | disposition left against medical advice (07) | DRG 378 ==
LOC: E/R 17:32 → MS4 23:00
PROVIDERS: ADMIT Internal Medicine; ATTEND Internal Medicine
DX: K92.2 Gastrointestinal hemorrhage, unspecified (principal); E87.0 Hyperosmolality and hypernatremia; K70.9 Alcoholic liver disease, unspecified; K92.0 Hematemesis; Y90.8 Blood alcohol level of 240 mg/100 ml or more; E87.6 Hypokalemia; F10.20 Alcohol dependence, uncomplicated; R07.89 Other chest pain; R10.13 Epigastric pain; Z59.0 Homelessness
CPT/HCPCS: 36415; 71010; 80048; 80053; 80306; 83690; 83735; 84100; 84484; 85025; 85610; 85730; 86850; 86900; 86901; 93005; 96361; 96374; 96375; 96376; C9113; J1170; J2060; J2354; J2405; J3411; J7030

== ENCOUNTER 2018-08-25 12:45 | Emergency (ER) | END 2018-08-25 13:55 | disposition home or self-care (01) ==